=== PATIENT | female | born 1965 | race Caucasian/White ===

== ENCOUNTER 2017-11-30 16:18 | Emergency (ER) | payer OTHER ==
--- NOTE | 2017-11-30 16:24 | EDPHY ---
H & P Time Seen by Provider: 11/30/17 16:24 HPI/ROS: CHIEF COMPLAINT: Several week history of headache, first-time seizure yesterday HISTORY OF PRESENT ILLNESS: The patient is referred to the ED from urgent care with a history of headache for several weeks and a reported first-time seizure yesterday. The patient denies significant alcohol use. She takes no prescription medications. The patient reportedly had a witnessed seizure while dining with friends last night. She did not sustain a significant traumatic injury. The patient has continued to have symptoms of an ongoing mild headache today and feels "off." The patient denies any vision loss. She denies any focal numbness or weakness. The patient denies any additional acute complaints. REVIEW OF SYSTEMS: A comprehensive 10 point review of systems is otherwise negative aside from elements mentioned in the history of present illness. Source: Patient Exam Limitations: No limitations - Medical/Surgical History Other PMH: Past medical history: Possible rheumatoid arthritis - Family History Significant Family History: No pertinent family hx - Social History Smoking Status: Never smoked - Physical Exam Exam: General Appearance: Alert, no distress Eyes: Pupils equal and round no pallor or injection ENT, Mouth: Mucous membranes moist Respiratory: There are no retractions, lungs are clear to auscultation Cardiovascular: Regular rate and rhythm Gastrointestinal: Abdomen is soft and nontender, no masses, bowel sounds normal Neurological: A&O, normal motor function, normal sensory exam, normal cranial nerves Skin: Warm and dry, no rashes Musculoskeletal: Neck is supple nontender Extremities: symmetrical, full range of motion Constitutional: Initial Vital Signs Temperature (C) 37 C 11/30/17 16:27 Heart Rate 96 11/30/17 16:27 Respiratory Rate 16 11/30/17 16:27 Blood Pressure 118/81 H 11/30/17 16:27 O2 Sat (%) 94 11/30/17 16:27 O2 Delivery Mode Room Air Allergies/Adverse Reactions: amoxicillin Allergy (Verified 11/30/17 16:27) Home Medications: Medication Instructions Recorded NK [No Known Home Meds] 11/30/17 Medical Decision Making - Diagnostics EKG Interpretation: EKG: Complete interpretation has been separately recorded in the [employer] archive. Summary impression: Sinus rhythm, rate 72 Imaging Results: Imaging Impressions Head CT 11/30/17 16:25 Impression: Normal CT of the head. Specifically, a headache source is not identified. Results called and discussed with William Bertrand M.D. on 11/30/2017 at 17:13 Brain MRI 11/30/17 17:45 Impression: Negative MRI of the brain without contrast. Results called to Andrew Isaac M.D., at 7:00 PM. Head MRA 11/30/17 17:45 Impression: 1. 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 No features of dural venous sinus thrombosis. Results called to Dr. Andrew Isaac at 7:00 PM. ED Course/Re-evaluation: The patient presents the ED after a likely first-time seizure. She is noted to be neurologically intact. She has had no recurrent seizure activity today. The patient's laboratory studies are unremarkable. The patient was taken for an unremarkable noncontrast head CT scan. Patient's EKG demonstrates no evidence of an arrhythmia. The patient was observed in the emergency department for 3 hr without any recurrent seizure activity or abnormalities noted on her neurologic exam. Given the patient's complaint of a frontal headache I did pursue additional imaging including a MRI of the brain and MR venogram which demonstrate no acute abnormality. I discussed with the patient the follow-up plan that she should contact neurology to schedule an outpatient EEG. She has been given customary aftercare instructions and precautions regarding her first-time seizure. I re-evaluated the patient at 7:15 p.m. and reviewed her studies. Differential Diagnosis: Differential diagnosis considered includes seizure, syncope, dehydration, metabolic abnormality, intracranial hemorrhage, CAMPUS AIDE tumor, central vein thrombosis - Data Points Laboratory Results: Laboratory Results 11/30/17 16:40 11/30/17 16:40 11/30/17 11/30/17 16:40 16:40 WBC 5.50 10^3/uL 10^3/uL (3.80-9.50) RBC 4.81 10^6/uL 10^6/uL (4.18-5.33) Hgb 14.6 g/dL g/dL (12.6-16.3) Hct 42.0 % % (38.0-47.0) MCV 87.3 fL fL (81.5-99.8) MCH 30.4 pg pg (27.9-34.1) MCHC 34.8 g/dL g/dL (32.4-36.7) RDW 13.4 % % (11.5-15.2) Plt Count 266 10^3/uL 10^3/uL (150-400) MPV 9.9 fL fL (8.7-11.7) Neut % (Auto) 53.2 % % (39.3-74.2) Lymph % (Auto) 32.7 % % (15.0-45.0) [place] % (Auto) 12.9 % % (4.5-13.0) Eos % (Auto) 0.5 % L % (0.6-7.6) Baso % (Auto) 0.5 % % (0.3-1.7) Nucleat RBC Rel Count 0.0 % % (0.0-0.2) Absolute Neuts (auto) 2.92 10^3/uL 10^3/uL (1.70-6.50) Absolute Lymphs (auto) 1.80 10^3/uL 10^3/uL (1.00-3.00) Absolute Monos (auto) 0.71 10^3/uL 10^3/uL (0.30-0.80) Absolute Eos (auto) 0.03 10^3/uL 10^3/uL (0.03-0.40) Absolute Basos (auto) 0.03 10^3/uL 10^3/uL (0.02-0.10) Absolute Nucleated RBC 0.00 10^3/uL 10^3/uL (0-0.01) Immature Gran % 0.2 % % (0.0-1.1) Immature Gran # 0.01 10^3/uL 10^3/uL (0.00-0.10) Sodium 143 mEq/L mEq/L (135-145) Potassium 4.2 mEq/L mEq/L (3.3-5.0) Chloride 106 mEq/L mEq/L (97-110) Carbon Dioxide 24 mEq/l mEq/l (22-31) Anion Gap 13 mEq/L mEq/L (8-16) BUN 15 mg/dL mg/dL (7-23) Creatinine 0.6 mg/dL mg/dL (0.6-1.0) Estimated GFR > 60 Glucose 94 mg/dL mg/dL (70-100) Calcium 10.0 mg/dL mg/dL (8.5-10.4) Medications Given: Discontinued Medications Lorazepam (Ativan Injection) 1 mg IVP EDNOW ONE Stop: 11/30/17 18:15 Last Admin: 11/30/17 18:15 Dose: 1 mg Departure - Departure Disposition: Home, Routine, Self-Care Clinical Impression: Seizure Condition: Good Instructions: New-Onset Seizure in Adults (ED) Additional Instructions: 1. No driving, dangerous activities such as riding a ski lift, swimming in a pool or other behavior that could put you or someone else at risk in the event of a recurrent seizure. You will need to be cleared by a neurologist to resume these activities. 2. Please return to the ED for recurrent seizure, headache, numbness, weakness, altered mental status or other concerns. 3. Please follow up with neurologist you have been referred to this week to schedule a follow-up appointment. 4. Take Ibuprofen or Motrin 600 mg by mouth three times a day for pain. Referrals: Parmjit Dunn, DO [Medical Doctor] - As per Instructions
[2017-11-30 16:50] LABS: PLATELET COUNT 266 10^3/uL (150-400)
--- NOTE | 2017-11-30 17:35 | CPEKG ---
Heart Rate: 72 RR Interval: 833 P-R Interval: 160 QRSD Interval: 88 QT Interval: 380 QTC Interval: 416 P [place]: 69 QRS [place]: 50 T Wave [place]: 66 EKG Severity - BORDERLINE ECG - EKG Impression: SINUS RHYTHM Electronically Signed By: William Bertrand 30-Nov-2017 17:49:31
[2017-11-30] MEDS ORDERED: LORazepam 2 MG/ML INJ ONE (18:13)
[2017-11-30] MEDS ORDERED: LORazepam 2 MG/ML INJ IVP ONE (18:14)
[2017-11-30 19:41] VITALS: BP 121/78
== END 2017-11-30 19:57 | disposition home or self-care (01) ==
DX: R56.9 Unspecified convulsions (principal)
CPT/HCPCS: 96374; J2060

== ENCOUNTER 2018-03-09 13:28 | Emergency (ER) | payer OTHER ==
--- NOTE | 2018-03-09 14:31 | EDPHY ---
H & P Stated Complaint: Facial numbness x 3 days, R ear pressure Time Seen by Provider: 03/09/18 14:31 HPI/ROS: CHIEF COMPLAINT: Right facial numbness, pain in right ear HISTORY OF PRESENT ILLNESS: The patient is referred to the emergency department for evaluation of a 3 day history of right facial numbness and pain in her right ear. The patient has a prior history of a possible seizure which occurred in November of this year. She was seen in the ED at that time and had a negative noncontrast head CT scan, normal brain MRI and unremarkable MR angiogram of the neck. The patient did have an episode of presyncope yesterday but not true tonic-clonic seizure activity. The patient has not yet followed up with Neurology. The patient takes no regular medications. REVIEW OF SYSTEMS: A comprehensive 10 point review of systems is otherwise negative aside from elements mentioned in the history of present illness. Source: Patient - Personal History LMP (Females 10-55): Unknown - Medical/Surgical History Hx Asthma: No Hx Chronic Respiratory Disease: No Hx Diabetes: No Hx Cardiac Disease: No Hx Renal Disease: No Hx Cirrhosis: No Hx Alcoholism: No Hx HIV/AIDS: No Hx Splenectomy or Spleen Trauma: No Other PMH: possible first seizure 11/26-(never f/u w/ neuro yet) - Social History Smoking Status: Never smoked - Physical Exam Exam: General Appearance: Alert, no distress Eyes: Pupils equal and round no pallor or injection, right tympanic membrane mobile, no effusion, no vascicular lesions noted ENT, Mouth: Mucous membranes moist Respiratory: There are no retractions, lungs are clear to auscultation Cardiovascular: Regular rate and rhythm Gastrointestinal: Abdomen is soft and nontender, no masses, bowel sounds normal Neurological: 5/5 strength all 4 extremities, alert and oriented x4, no facial weakness appreciated, patient does report decreased sensation to light touch in her right cranial nerve 5 distribution Skin: Warm and dry, no rashes, no herpetic lesions Musculoskeletal: Neck is supple nontender Extremities: symmetrical, full range of motion Constitutional: Initial Vital Signs Temperature (C) 36.7 C 03/09/18 13:36 Heart Rate 81 03/09/18 13:36 Respiratory Rate 16 03/09/18 13:36 Blood Pressure 104/72 03/09/18 13:36 O2 Sat (%) 97 03/09/18 13:36 O2 Delivery Mode Room Air Allergies/Adverse Reactions: amoxicillin Allergy (Verified 11/30/17 16:27) Home Medications: Medication Instructions Recorded NK [No Known Home Meds] 11/30/17 Medical Decision Making - Diagnostics Imaging Results: Imaging Impressions Brain MRI 03/09/18 14:51 Impression: Stable negative MRI of the brain without contrast. Results called to Dr. Andrew Isaac at 7:00 PM ED Course/Re-evaluation: The patient presents to the ED with several days of right facial numbness. I detect no additional abnormalities on her neurologic examination aside from subjectively decreased sensation to light touch. She was seen in the emergency department 3 months ago following a possible seizure. She did have MR imaging of her head and central vessels at that point time. Given her acute neurologic complaints a repeat brain MRI was obtained which demonstrated no evidence of a stroke. MR angiogram of the neck was also obtained as a study for evaluation of her symptoms. 7:00 p.m.: I discussed the results of the patient's MRI studies with Dr. Dain Perez from Radiology. There is no acute abnormalities noted on her brain MRI or angiogram of her neck. At this point time I do feel the patient should follow up as we recommended in the past with Neurology. It is certainly possible she is having a migraine variant. Have encouraged her to continue to use Tylenol and ibuprofen as needed for management of her symptoms. She will be instructed to return to the ED for fever, markedly worsening symptoms or other concerns. Differential Diagnosis: Differential diagnosis considered includes migraine syndrome, intracranial hemorrhage, stroke, metabolic abnormality, dehydration, carotid artery injury - Data Points Laboratory Results: Laboratory Results 03/09/18 15:03 03/09/18 15:03 03/09/18 03/09/18 15:03 15:03 WBC 5.72 10^3/uL 10^3/uL (3.80-9.50) RBC 4.28 10^6/uL 10^6/uL (4.18-5.33) Hgb 13.0 g/dL g/dL (12.6-16.3) Hct 38.1 % % (38.0-47.0) MCV 89.0 fL fL (81.5-99.8) MCH 30.4 pg pg (27.9-34.1) MCHC 34.1 g/dL g/dL (32.4-36.7) RDW 13.6 % % (11.5-15.2) Plt Count 259 10^3/uL 10^3/uL (150-400) MPV 9.7 fL fL (8.7-11.7) Neut % (Auto) 50.5 % % (39.3-74.2) Lymph % (Auto) 32.0 % % (15.0-45.0) [place] % (Auto) 14.5 % H % (4.5-13.0) Eos % (Auto) 2.1 % % (0.6-7.6) Baso % (Auto) 0.7 % % (0.3-1.7) Nucleat RBC Rel Count 0.0 % % (0.0-0.2) Absolute Neuts (auto) 2.89 10^3/uL 10^3/uL (1.70-6.50) Absolute Lymphs (auto) 1.83 10^3/uL 10^3/uL (1.00-3.00) Absolute Monos (auto) 0.83 10^3/uL H 10^3/uL (0.30-0.80) Absolute Eos (auto) 0.12 10^3/uL 10^3/uL (0.03-0.40) Absolute Basos (auto) 0.04 10^3/uL 10^3/uL (0.02-0.10) Absolute Nucleated RBC 0.00 10^3/uL 10^3/uL (0-0.01) Immature Gran % 0.2 % % (0.0-1.1) Immature Gran # 0.01 10^3/uL 10^3/uL (0.00-0.10) Sodium 139 mEq/L mEq/L (135-145) Potassium 4.0 mEq/L mEq/L (3.3-5.0) Chloride 104 mEq/L mEq/L (97-110) Carbon Dioxide 27 mEq/l mEq/l (22-31) Anion Gap 8 mEq/L mEq/L (8-16) BUN 14 mg/dL mg/dL (7-23) Creatinine 0.6 mg/dL mg/dL (0.6-1.0) Estimated GFR > 60 Glucose 89 mg/dL mg/dL (70-100) Calcium 9.6 mg/dL mg/dL (8.5-10.4) Medications Given: Discontinued Medications Lorazepam (Ativan 1mg/Ml Iv Syr) 1 mg IV ONCE ONE Stop: 03/09/18 17:26 Last Admin: 03/09/18 17:56 Dose: Not Given Lorazepam (Ativan Injection) 1 mg IVP EDNOW ONE Stop: 03/09/18 17:36 Last Admin: 03/09/18 17:37 Dose: 1 mg Departure - Departure Disposition: Home, Routine, Self-Care Clinical Impression: Paresthesia Condition: Good Instructions: Paresthesia (ED) Additional Instructions: 1. I highly recommend following up with Neurology for further evaluation of your symptoms and questionable prior seizure. 2. Your imaging studies continued to be reassuring in the emergency department today without evidence of stroke, tumor, bleeding or arterial injury. 3. Please return to the ED for the development of any progressive neurologic symptoms, fever, worsening symptoms or other concerns. Referrals: Cuco Gurrola MD [Medical Doctor] - As per Instructions
[2018-03-09 15:20] LABS: PLATELET COUNT 259 10^3/uL (150-400)
[2018-03-09] MEDS ORDERED: GADOBUTROL 10 ML VIAL IVP ONE (17:09)
[2018-03-09] MEDS ORDERED: *PHM DO NOT USE-LORazepam 1 MG/ML IV NEWBORN SYR IV ONE (17:25)
[2018-03-09] MEDS ORDERED: LORazepam 2 MG/ML INJ ONE (17:28)
[2018-03-09] MEDS ORDERED: LORazepam 2 MG/ML INJ IVP ONE (17:35)
[2018-03-09 19:11] VITALS: BP 112/79
== END 2018-03-09 19:21 | disposition home or self-care (01) ==
DX: R20.2 Paresthesia of skin (principal)
CPT/HCPCS: 96374; A9585; J2060

== ENCOUNTER → 2018-08-04 | Outpatient (CLI) | payer OTHER | LOC: BMCIMAGING 14:45 | PROVIDERS: ATTEND Internal Medicine | DX: R00.2 Palpitations (principal); R53.83 Other fatigue; M51.34 Other intervertebral disc degeneration, thoracic region ==